=== PATIENT | female | born 1955 | race Caucasian/White ===

== ENCOUNTER → 2022-08-19 | Outpatient (CLI) | payer MEDICARE, MEDICAID, SELFPAY | END | disposition home or self-care (01) | LOC: LABSPEC 16:15 | PROVIDERS: PCP Internal Medicine; Referring Provider Otolaryngology Otolaryngology/Facial Plastic Surgery; Visit Provider Otolaryngology Otolaryngology/Facial Plastic Surgery | DX: L03.90 Cellulitis, unspecified (principal) | CPT/HCPCS: 87070; 87077; 87186; 87205 ==